=== PATIENT | female | born 1980 | race Caucasian/White ===

== ENCOUNTER 2023-06-18 12:48 | Outpatient (CLI) | payer BC, SELFPAY ==
--- NOTE | 2023-06-18 13:00 | MM_ITS ---
Patient: SHERICE QUILES Facility:?[facility] RIS Patient ID:?[id number] Site Patient ID:?[id number]. Site :?[id number] Study:?XRay-Breast Bilateral 3D-06/18/2023 1:31:30 PM Ordering Physician:?Melody Final Report: BILATERAL SCREENING MAMMOGRAM WITH COMPUTER-AIDED DETECTION AND TOMOSYNTHESIS TECHNIQUE: CC and MLO views were obtained. These mammographic images have been obtained using full-field digital technique. These mammographic images were interpreted with the benefit of computer-aided detection. Breast Tomosynthesis was used in this interpretation. COMPARISON FILM: Baseline. FINDINGS: There are scattered areas of fibroglandular density. IMPRESSION: There is no radiographic evidence for malignancy. ASSESSMENT: BI-RADS Category 1: Negative RECOMMENDATION: Routine screening mammogram in 1 year. A lay language report of this examination will be provided to the patient. Neymar Mantilla M.D. Diagnostic Radiologist [email or web address] CONSTANTINE/vaishali R& Transcribed: 5:27 p.m. SP/Dictated by: Neymar Mantilla MD @ 06/21/2023 9:00:00 AM Signed by:?Neymar Mantilla MD @06/22/2023 5:13:13 AM (Electronic Signature)
== END 2023-06-18 12:49 | disposition home or self-care (01) ==
LOC: MAMMO 12:49
PROVIDERS: Visit Provider Obstetrics & Gynecology
DX: Z12.31 Encounter for screening mammogram for malignant neoplasm of breast (principal)
CPT/HCPCS: 77063; 77067